=== PATIENT | male | born 1990 | race Caucasian/White ===

== ENCOUNTER 2017-04-25 20:07 | Emergency (ER) | payer OTHER ==
[~2017-04-25] VITALS: Ht 167.6 cm; Wt 79.5 kg
[~2017-04-25 20:07] MED LIST: AMOXICILLIN 50500 MG PO; NO HOME MEDICATIONS
[2017-04-25 20:57] LABS: INFLUENZA A NEGATIVE; INFLUENZA B NEGATIVE
[2017-04-25 21:50] VITALS: TEMP 101.5
[2017-04-25 22:36] VITALS: BP 107/53; PULSE 92
== END 2017-04-25 22:38 | disposition home or self-care (01) ==
LOC: COL.ER 20:07
PROVIDERS: Emergency Medicine
DX: J11.1 Influenza due to unidentified influenza virus with other respiratory manifestations (principal)
CPT/HCPCS: J1885; J7030